=== PATIENT | female | born 1965 | race Caucasian/White ===

== ENCOUNTER 2018-07-15 17:37 | Observation (INO) | payer MEDICAID ==
[~2018-07-15] VITALS: Ht 165.1 cm; Wt 73.2 kg
[~2018-07-15 17:37] MED LIST: HYDR10TA4 PO; SERT25TA3 PO; TRAM50TA2 PO
[2018-07-15 18:52] LABS: AMPHETAMINE SCREEN, URINE Negative (Negative); BARBITURATE SCREEN, URINE Negative (Negative); BENZODIAZEPINE SCREEN, URINE Negative (Negative); CANNABINOID SCREEN, URINE Negative (Negative); COCAINE SCREEN, URINE Negative (Negative); METHADONE SCREEN, URINE Negative (Negative); OPIATE SCREEN, URINE Negative (Negative)
[2018-07-15 19:03] LABS: BASOPHILS # (AUTO) 0.02 x10^3/uL (0-0.1); BASOPHILS % (AUTO) 0 % (0-1); EOSINOPHILS # (AUTO) 0.21 x10^3/uL (0-0.4); EOSINOPHILS % (AUTO) 3 % (1-7); LYMPHOCYTES # (AUTO) 2.38 x10^3/uL (1-3.4); LYMPHOCYTES % (AUTO) 38 % (22-44); MD NO; MEAN CORPUSCULAR HEMOGLOBIN 27.2 pg (27.0-34.8); MEAN CORPUSCULAR HGB CONC 33.5 g/dL (32.4-35.8); MEAN CORPUSCULAR VOLUME 81.3 fL (80-100); MEAN PLATELET VOLUME 6.9 fL (7.4-10.4); MONOCYTES # (AUTO) 0.68 x10^3/uL (0.2-0.8); MONOCYTES % (AUTO) 11 % (2-9); NEUTROPHILS # (AUTO) 2.93 x10^3/uL (1.8-6.8); NEUTROPHILS % (AUTO) 47 % (42-75); PLATELET COUNT 241 x10^3/uL (130-400); RED BLOOD COUNT 4.25 x10^6/uL (3.82-5.3); RED CELL DISTRIBUTION WIDTH 13.9 % (9.6-15.2)
[2018-07-15 19:10] LABS: ALBUMIN 3.4 g/dL (3.4-5.0); ANION GAP 8 mmol/L (5-15); CHLORIDE 108 mmol/L (98-107)
[2018-07-15 19:17] LABS: ALANINE AMINOTRANSFERASE 48 U/L (12-78); ALKALINE PHOSPHATASE 112 U/L (45-117); CREATININE 0.63 mg/dL (0.55-1.02); TOTAL PROTEIN 6.8 g/dL (6.4-8.2)
[2018-07-15 19:18] LABS: BILIRUBIN,TOTAL 0.5 mg/dL (0.2-1.0)
[2018-07-15 19:19] LABS: ACETAMINOPHEN < 2 mcg/mL (10-30); SALICYLATE LEVEL < 1.7 mg/dL (2.8-20.0)
[2018-07-15] MEDS ORDERED: ACETAMINOPHEN 325 MG TABLET PO PRN (22:00)
[2018-07-15] MEDS ORDERED: TEMPLATE NON-FORMULARY MED. (Tramadol Hcl** 50 MG) PO SCH (22:00)
[2018-07-15] MEDS ORDERED: HALOPERIDOL 5 MG/ML IM PRN (22:00)
[2018-07-15] MEDS ORDERED: ONDANSETRON ODT 4 MG PO PRN (22:00)
[2018-07-15] MEDS ORDERED: POLYETHYLENE GLYCOL 17 GM PACKET PO PRN (22:00)
[2018-07-15] MEDS ORDERED: TRAZODONE 50MG TABLET PO SCH (23:30)
[2018-07-15 23:45] VITALS: BP 123/74
[2018-07-16] MEDS ORDERED: SERTRALINE 50MG TABLET PO SCH (09:00)
== END 2018-07-16 02:11 ==
LOC: ED 18:53 → EDIP 21:44 → 2N 22:25
PROVIDERS: ADMIT Hospitalist; ATTEND Hospitalist
DX: R45.850 Homicidal ideations (principal); F29 Unspecified psychosis not due to a substance or known physiological condition; R45.851 Suicidal ideations; J44.9 Chronic obstructive pulmonary disease, unspecified; Z59.0 Homelessness; Z91.83 Wandering in diseases classified elsewhere
CPT/HCPCS: 36415; 80053; 80307; 80329; 84703; 85025; 99284; G0378; Q0177; G0480

== ENCOUNTER 2018-11-30 16:21 | Emergency (ER) | payer MEDICAID ==
[~2018-11-30] VITALS: Ht 172.7 cm; Wt 82.0 kg
[2018-11-30 16:40] VITALS: BP 134/75
[2018-11-30] MEDS ORDERED: BACITRACIN ZINC OINT 500U/GM, 0.9 GM ONE (16:56)
--- NOTE | 2018-11-30 16:58 | NUR ---
pt in room on [facility]. pt has a wheelchair full of belongings, 2 suitcases, one bag and a horse and jockey sign.
== END 2018-11-30 17:49 | disposition home or self-care (01) ==
LOC: ED 17:43
DX: S80.02XA Contusion of left knee, initial encounter (principal); S80.01XA Contusion of right knee, initial encounter; W01.0XXA Fall on same level from slipping, tripping and stumbling without subsequent striking against object, initial encounter; Y93.89 Activity, other specified; Y92.89 Other specified places as the place of occurrence of the external cause; Y99.8 Other external cause status
CPT/HCPCS: 99283

== ENCOUNTER 2018-12-23 00:13 | Emergency (ER) | payer MEDICAID ==
[~2018-12-23] VITALS: Ht 167.6 cm; Wt 77.7 kg
[2018-12-23 00:15] VITALS: BP 118/71
== END 2018-12-23 00:40 | disposition home or self-care (01) ==
LOC: ED 00:34
DX: J37.0 Chronic laryngitis (principal); Z95.0 Presence of cardiac pacemaker; J44.9 Chronic obstructive pulmonary disease, unspecified
CPT/HCPCS: 99281

== ENCOUNTER 2019-03-19 13:59 | Emergency (ER) | payer MEDICAID ==
[2019-03-19 14:03] VITALS: BP 126/79
== END 2019-03-19 14:55 | disposition home or self-care (01) ==
LOC: ED 14:42
DX: L50.0 Allergic urticaria (principal); L03.113 Cellulitis of right upper limb; J44.9 Chronic obstructive pulmonary disease, unspecified; Z72.9 Problem related to lifestyle, unspecified; F17.200 Nicotine dependence, unspecified, uncomplicated
CPT/HCPCS: 99283; Q0177

== ENCOUNTER 2020-10-01 12:21 | Emergency (ER) | payer MEDICAID ==
[~2020-10-01] VITALS: Ht 165.1 cm; Wt 65.0 kg
[~2020-10-01 12:21] MED LIST changes: +HYDR-2995 PO; -HYDR10TA4 PO; +SERT-331 PO; -SERT25TA3 PO
--- NOTE | 2020-10-01 12:25 | NUR ---
PT BROUGHT IN BY [facility] FROM [facility] PLACED ON L2K FOR MANIC EPISODE AND NONCOMPLAIACE WITH MEDICATIONS. PT IS ALERT AND ORIENTED, NO SI/SA, HOWEVER DISORGANIZED THOUGHTS PRESENT.
--- NOTE | 2020-10-01 12:40 | NUR ---
SARAH GARCIA AT [facility] FOR EVALUATION
[2020-10-01] MEDS ORDERED: HALOPERIDOL 5 MG/ML IM ONE (12:41)
[2020-10-01] MEDS ORDERED: HALOPERIDOL 5 MG/ML ONE (12:53)
[2020-10-01 13:02] LABS: BASOPHILS % (AUTO) 1 % (0-1); EOSINOPHILS % (AUTO) 2 % (1-7); LYMPHOCYTES % (AUTO) 30 % (22-44); MEAN CORPUSCULAR HEMOGLOBIN 27.2 pg (27.0-34.8); MEAN PLATELET VOLUME 6.6 fL (7.4-10.4); MONOCYTES % (AUTO) 7 % (2-9); NEUTROPHILS % (AUTO) 61 % (42-75); PLATELET COUNT 282 x10^3/uL (130-400); RED BLOOD COUNT 4.58 x10^6/uL (3.82-5.3); RED CELL DISTRIBUTION WIDTH 14.1 % (9.6-15.2)
[2020-10-01 13:04] LABS: MD NO
[2020-10-01 13:15] LABS: ALBUMIN 3.8 g/dL (3.4-5.0); ANION GAP 7 mmol/L (5-15); CALCIUM 8.7 mg/dL (8.5-10.1); CHLORIDE 108 mmol/L (98-107)
[2020-10-01 13:16] LABS: SALICYLATE LEVEL < 1.7 mg/dL (2.8-20.0)
[2020-10-01 14:07] VITALS: BP 109/65
--- NOTE | 2020-10-01 15:15 | NUR ---
URINE SAMPLE COLLECTED, STEADY AMBULATION TO BATHROOM. SAFETY PRECAUTIONS IN PLACE
--- NOTE | 2020-10-01 16:02 | NUR ---
PT SITTING IN BED EATING MEAL
[2020-10-01 16:39] LABS: AMPHETAMINE SCREEN, URINE Positive (Negative); BARBITURATE SCREEN, URINE Negative (Negative); BENZODIAZEPINE SCREEN, URINE Negative (Negative); CANNABINOID SCREEN, URINE Negative (Negative); COCAINE SCREEN, URINE Negative (Negative); METHADONE SCREEN, URINE Negative (Negative); OPIATE SCREEN, URINE Negative (Negative)
--- NOTE | 2020-10-01 17:19 | NUR ---
REPORT GIVEN TO THOR OBRIEN ON [facility].
== END 2020-10-01 21:30 | disposition other institution (70) ==
LOC: ED 13:46
DX: F44.9 Dissociative and conversion disorder, unspecified (principal); Z20.822 Contact with and (suspected) exposure to COVID-19
CPT/HCPCS: 36415; 80048; 80299; 80307; 80320; 82040; 85025; 87426; 99285; J1630; 80329; G0480

== ENCOUNTER 2020-10-01 16:10 | Inpatient (IN) | payer MEDICAID ==
[~2020-10-01] VITALS: Ht 162.6 cm; Wt 65.0 kg
[2020-10-01] MEDS ORDERED: POLYETHYLENE GLYCOL 17 GM PACKET PO PRN (16:30)
[2020-10-01] MEDS ORDERED: ACETAMINOPHEN 325 MG TABLET PO PRN (16:30)
[2020-10-01] MEDS ORDERED: ONDANSETRON ODT 4 MG PO PRN (16:30)
[2020-10-01] MEDS ORDERED: BISACODYL 10 MG SUPP PR PRN (16:30)
[2020-10-01] MEDS: PLEASE ENTER HEIGHT AND WEIGHT MC SCH (18:00)
[2020-10-01 18:29] VITALS: BP 125/77
[2020-10-01] MEDS: ZIPRASIDONE 40MG CAPSULE PO SCH (22:00)
[2020-10-01] MEDS: CARBAMAZEPINE 200 MG TABLET PO SCH (22:00)
[2020-10-02] MEDS: PLEASE ENTER HEIGHT AND WEIGHT MC SCH (02:00)
[2020-10-02 06:38] LABS: CHOL/HDL RATIO 1.7; FREE T4 (FREE THYROXINE) 1.02 ng/dL (0.76-1.46); LDL/HDL RATIO 0.6 (0.5-3.0)
[2020-10-02 07:41] VITALS: BP 117/76
[2020-10-02] MEDS: ZIPRASIDONE 40MG CAPSULE PO SCH ×2 (08:38→19:50)
[2020-10-02] MEDS: CARBAMAZEPINE 200 MG TABLET PO SCH ×2 (08:38→19:50)
[2020-10-03 07:41] VITALS: BP 137/86
[2020-10-03] MEDS: ZIPRASIDONE 40MG CAPSULE PO SCH ×2 (09:10→20:58)
[2020-10-03] MEDS: CARBAMAZEPINE 200 MG TABLET PO SCH ×2 (09:10→20:58)
[2020-10-03 09:28] LABS: MICROSCOPIC INDICATED
[2020-10-03 19:50] VITALS: BP 121/64
[2020-10-04 07:52] VITALS: BP 122/77
[2020-10-04] MEDS: ZIPRASIDONE 40MG CAPSULE PO SCH ×2 (09:47→14:24)
[2020-10-04] MEDS: CARBAMAZEPINE 200 MG TABLET PO SCH ×3 (09:47→20:23)
[2020-10-04] MEDS: LORazepam 1MG TABLET PO PRN (14:21)
[2020-10-04] MEDS: CEPHALEXIN 500 MG CAPSULE PO SCH ×2 (17:30→20:23)
[2020-10-04 19:34] VITALS: BP 110/71
[2020-10-05] MEDS: CEPHALEXIN 500 MG CAPSULE PO SCH ×4 (06:26→20:21)
[2020-10-05 08:14] VITALS: BP 127/76
[2020-10-05] MEDS: ZIPRASIDONE 40MG CAPSULE PO SCH ×2 (09:32→20:20)
[2020-10-05] MEDS: CARBAMAZEPINE 200 MG TABLET PO SCH ×2 (09:32→20:21)
[2020-10-05 19:46] VITALS: BP 115/78
[2020-10-06] MEDS: LORazepam 1MG TABLET PO PRN (02:54)
[2020-10-06] MEDS: CEPHALEXIN 500 MG CAPSULE PO SCH ×4 (06:10→20:37)
[2020-10-06 07:43] VITALS: BP 114/77
[2020-10-06] MEDS: ZIPRASIDONE 40MG CAPSULE PO SCH ×2 (09:15→20:37)
[2020-10-06] MEDS: CARBAMAZEPINE 200 MG TABLET PO SCH ×2 (09:15→20:37)
[2020-10-06] MEDS ORDERED: ZIPR40CA2 PO (12:51)
[2020-10-06] MEDS ORDERED: CEPH-376 PO (12:51)
[2020-10-06] MEDS ORDERED: CARB200T4 PO (12:51)
[2020-10-06 19:34] VITALS: BP 116/79
[2020-10-07] MEDS: LORazepam 1MG TABLET PO PRN (02:14)
[2020-10-07] MEDS: CEPHALEXIN 500 MG CAPSULE PO SCH ×2 (05:58→11:10)
[2020-10-07 07:36] VITALS: BP 118/76
[2020-10-07] MEDS: CARBAMAZEPINE 200 MG TABLET PO SCH (08:36)
[2020-10-07] MEDS: ZIPRASIDONE 40MG CAPSULE PO SCH (08:36)
== END 2020-10-07 13:31 | disposition home or self-care (01) | DRG 885 ==
LOC: 3E 17:47
PROVIDERS: ADMIT Psychiatry & Neurology Psychosomatic Medicine; ATTEND Psychiatry & Neurology Psychosomatic Medicine
DX: F31.2 Bipolar disorder, current episode manic severe with psychotic features (principal); F23 Brief psychotic disorder; F15.229 Other stimulant dependence with intoxication, unspecified; Z79.899 Other long term (current) drug therapy; Z88.2 Allergy status to sulfonamides
CPT/HCPCS: 36415; 71045; 80061; 81001; 82140; 84439; 84443; 87077; 87086; 87186